=== PATIENT | female | born 1980 | race Caucasian/White ===

== ENCOUNTER 2021-10-16 16:54 | Emergency (ER) | payer OTHER ==
[~2021-10-16 16:54] MED LIST: AUGMENTIN 500-500 MG PO; BUSPAR 10MG10 MG PO; CLEOCIN HCL300 MG PO; IBUPROFEN800 MG PO; PERCOCET 7.5-31 EACH PO
[2021-10-16 19:51] LABS: HEMOGLOBIN 12.2 gm/dl (12.3-15.3); RED BLOOD COUNT 4.07 M/UL (4.00-5.10); WHITE BLOOD COUNT 7.9 K/UL (4.5-11.0)
[2021-10-16 20:02] LABS: BUN/CREATININE RATIO 15 (0-10)
== END 2021-10-16 20:40 | disposition left against medical advice (07) ==
LOC: ER1 16:54
PROVIDERS: Preventive Medicine Occupational Medicine
DX: F19.10 Other psychoactive substance abuse, uncomplicated (principal)
CPT/HCPCS: 71045; 80053; 80307; 82550; 82553; 83605; 83690; 84484; 85025; 85652; 87040; 96365; 96366; 99283; G0480; J3370; J7030